=== PATIENT | male | born 1965 | race Caucasian/White ===

== ENCOUNTER 2018-11-05 10:58 | Emergency (ER) | payer OTHER ==
--- NOTE | 2018-11-05 11:14 | ERPHSYRPT ---
- History of Present Illness Time Seen by Provider: 11/05/18 11:13 Source: patient Physician History: 53 y/o white male presents with mouth pain. specifically, pts pain is in the site of right upper tooth extraction. pts procedure performed last friday or the friday before. pt does not see dentist until early november 2018 Timing/Duration: gradual onset Severity: mild ENT Location: dental Prearrival Treatment: no prearrival treatment Associated Symptoms: tooth pain, No ear pain (R), No ear pain (L), No cough Allergies/Adverse Reactions: Penicillins Allergy (Verified 11/05/18 11:18) Home Medications: Multivitamin [Daily Multiple Vitamin] 1 each PO DAILY 05/18/16 [History] Omeprazole 20 MG [Prilosec 20 mg] 40 mg PO DAILY 05/18/16 [History] Hx Tetanus, Diphtheria Vaccination/Date Given: Yes (in the last 5 years) Hx Influenza Vaccination/Date Given: No Hx Pneumococcal Vaccination/Date Given: No - Review of Systems Constitutional: No Symptoms Eyes: No Symptoms Ears, Nose, & Throat: Mouth Pain (right upper tenderness in area of dental extraction) Respiratory: No Symptoms Cardiac: No Symptoms Abdominal/Gastrointestinal: No Symptoms Genitourinary Symptoms: No Symptoms Musculoskeletal: No Symptoms Skin: No Symptoms Neurological: No Symptoms Psychological: No Symptoms Endocrine: No Symptoms Hematologic/Lymphatic: No Symptoms Immunological/Allergic: No Symptoms All Other Systems: Reviewed and Negative - Past Medical History Pertinent Past Medical History: Yes Neurological History: No Pertinent History ENT History: No Pertinent History Cardiac History: No Pertinent History Respiratory History: No Pertinent History Endocrine Medical History: No Pertinent History Musculoskeletal History: No Pertinent History GI Medical History: No Pertinent History History: No Pertinent History Psycho-Social History: No Pertinent History Male Reproductive Disorders: No Pertinent History Other Medical History: broken sacrum about 3-4 weeks ago. other than that pt reports no medical history - Past Surgical History Past Surgical History: No Neuro Surgical History: No Pertinent History Cardiac: No Pertinent History Respiratory: No Pertinent History Gastrointestinal: No Pertinent History Genitourinary: No Pertinent History Musculoskeletal: No Pertinent History Male Surgical History: No Pertinent History - Social History Smoking Status: Current every day smoker Drug Use: none Patient Lives Alone: No - Physical Exam General Appearance: no apparent distress, alert Eye Exam: bilateral eye: normal inspection, PERRL, EOMI Nasal Exam: normal inspection, No active bleeding Throat Exam: normal, pharynx normal, dental tenderness (gingival tenderness in area of dental extraction; healing well; no infection) Neck Exam: normal inspection, non-tender, supple, full range of motion Cardiovascular/Respiratory Exam: chest non-tender, normal breath sounds, regular rate/rhythm, heart sounds normal Abdominal Exam: non-tender Neurologic Exam: alert, oriented x 3, cooperative, 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 use tylenol and ibuprofen for pain.
[2018-11-05 11:26] VITALS: BP 153/98; PULSE 69; O2SAT 98
[2018-11-05] MEDS ORDERED: PERCOCET TABLET 5/325MG PO STA (11:31)
[2018-11-05] MEDS ORDERED: PERCOCET TABLET 5/325MG ONE (11:36)
== END 2018-11-05 12:22 | disposition home or self-care (01) ==
LOC: ED 10:58
DX: K13.79 Other lesions of oral mucosa (principal); Z98.818 Other dental procedure status
CPT/HCPCS: 99283; A9270-GY